=== PATIENT | female | born 1960 | race Caucasian/White ===

== ENCOUNTER 2023-10-22 16:01 | Emergency (ER) | payer OTHER ==
[2023-10-22 16:20] VITALS: TEMP 98.1; BMI 45.1
[2023-10-22] MEDS ORDERED: ACETAMINOPHEN 325 MG TABLET (FP) ONE (17:33)
[2023-10-22] MEDS: ACETAMINOPHEN 500 MG TABLET (FP) PO ONE (17:49)
[2023-10-22 19:13] VITALS: BP 111/62; PULSE 58; RESP 20
== END 2023-10-22 20:02 | disposition home or self-care (01) ==
LOC: JER 16:01
DX: M25.551 Pain in right hip (principal)
CPT/HCPCS: 72170-TC-FY; 93970-TC; 99284-25

== ENCOUNTER 2024-06-26 07:33 | Day surgery (SDC) | payer OTHER ==
[2024-06-10 13:42] VITALS: BMI 43.8
[2024-06-26 11:50] VITALS: TEMP 97.7
[2024-06-26 11:51] VITALS: RESP 18
[2024-06-26 13:24] VITALS: BP 118/68; PULSE 57
== END 2024-06-26 13:00 | disposition home or self-care (01) ==
LOC: JASU-ENDO 07:33
PROVIDERS: ATTEND Internal Medicine Gastroenterology
PROC: 0DB78ZX Excision of Stomach, Pylorus, Via Natural or Artificial Opening Endoscopic, Diagnostic (ICD-10-PCS; 2024-06-26)
PROC: 0DB68ZX Excision of Stomach, Via Natural or Artificial Opening Endoscopic, Diagnostic (ICD-10-PCS; 2024-06-26)
PROC: 0DB98ZX Excision of Duodenum, Via Natural or Artificial Opening Endoscopic, Diagnostic (ICD-10-PCS; principal; 2024-06-26 09:30)
DX: K29.50 Unspecified chronic gastritis without bleeding (principal)
CPT/HCPCS: 88305-TC; 88342-TC

== ENCOUNTER 2024-07-08 06:39 | Day surgery (SDC) | payer OTHER ==
[2024-06-26 11:24] VITALS: BMI 43.8
[2024-07-08 08:44] VITALS: TEMP 98
[2024-07-08 08:57] VITALS: PULSE 60; RESP 18
[2024-07-08 09:20] VITALS: BP 120/64
== END 2024-07-08 09:27 | disposition home or self-care (01) ==
LOC: JASU-ENDO 06:39
PROVIDERS: ATTEND Internal Medicine Gastroenterology
PROC: 0DBK8ZX Excision of Ascending Colon, Via Natural or Artificial Opening Endoscopic, Diagnostic (ICD-10-PCS; principal; 2024-07-08 08:00)
DX: Z12.11 Encounter for screening for malignant neoplasm of colon (principal); D12.0 Benign neoplasm of cecum; K57.30 Diverticulosis of large intestine without perforation or abscess without bleeding; K64.8 Other hemorrhoids; Z86.0100 Personal history of colon polyps, unspecified; I10 Essential (primary) hypertension
CPT/HCPCS: 88305-TC

== ENCOUNTER 2024-10-16 05:38 | Day surgery (SDC) | payer OTHER ==
[2024-10-15 11:02] VITALS: BMI 44.0
[2024-10-16] MEDS ORDERED: TRIAMCINOLONE ACET 40MG/1ML VIAL ONE (09:03)
[2024-10-16] MEDS ORDERED: ACETAMINOPHEN 500 MG TABLET (FP) PO PRN (09:08)
[2024-10-16 11:59] VITALS: RESP 20
[2024-10-16] MEDS: LIDOCAINE HCL 1% PRESERVATIVE FREE - 30ML VIAL IJ ONE ×2 (14:19)
[2024-10-16] MEDS: IOHEXOL 180 MG/1 ML ML IJ ONE ×2 (14:19)
[2024-10-16] MEDS: TRIAMCINOLONE ACETONIDE 40 MG/ML 10 ML VIAL IM ONE ×2 (14:20)
[2024-10-16 14:47] VITALS: BP 111/68; PULSE 56; TEMP 97.5
== END 2024-10-16 15:31 | disposition home or self-care (01) ==
LOC: JASU-SURG 05:38
PROVIDERS: ATTEND Pain Medicine Pain Medicine
PROC: 3E0U3GC Introduction of Other Therapeutic Substance into Joints, Percutaneous Approach (ICD-10-PCS; principal; 2024-10-16 13:45)
DX: M16.11 Unilateral primary osteoarthritis, right hip (principal)
CPT/HCPCS: 76000-TC-FY